=== PATIENT | female | born 1990 | race Two or more races ===

== ENCOUNTER 2023-12-06 22:51 | Emergency (ER) | payer MEDICAID, OTHER ==
[~2023-12-06] VITALS: Ht 167.6 cm; Wt 75.0 kg
[2023-12-06] MEDS: ONDANSETRON HCL 4 MG/2 ML VIAL IV ONE (23:52)
[2023-12-07 00:10] LABS: Basophils # (auto) 0.1 10 ^3/uL (0-0.2); Basophils % (auto) 0.7 % (0.0-2.0); Eosinophils # (auto) 0.2 10 ^3/uL (0-0.8); Eosinophils % (auto) 2.9 % (0.0-7.0); Hematocrit 38.9 % (36.0-46.0); Lymphocytes # (auto) 3.2 10 ^3/uL (0.4-5.4); Lymphocytes % (auto) 39.2 % (10.0-50.0); Mean Corpuscular Hemoglobin 28.8 pg (28.0-32.0); Mean Corpuscular Hgb Conc. 33.3 g/dL (32.0-36.0); Mean Corpuscular Volume 86.3 fL (80.0-100.0); Monocytes # (auto) 0.5 10 ^3/uL (0-1.3); Monocytes % (auto) 6.6 % (0.0-12.0); Neutrophils # (auto) 4.1 10 ^3/uL (1.6-8.6); Neutrophils % (auto) 50.6 % (37.0-80.0); Nucleated Red Blood Cells % 0.1 %; Platelet Count (auto) 412 10^3/uL (140-450); Red Blood Cells 4.51 10^6/uL (4.0-5.20); Red Cell Distribution Width 14.1 % (11.8-14.3); White Blood Cell 8.1 10^3/uL (4.4-10.8)
[2023-12-07 00:11] LABS: Chloride 108 mmol/L (98-107); Potassium 4.1 mmol/L (3.5-5.1); Sodium 138 mmol/L (136-145)
[2023-12-07 00:12] LABS: Anion Gap 4 (5-15); Carbon Dioxide 26 mmol/L (20-31)
[2023-12-07 00:13] LABS: Calcium 9.8 mg/dL (8.7-10.4)
[2023-12-07 00:18] LABS: Blood Urea Nitrogen 8 mg/dL (9-23); Glucose 91 mg/dL (74-106)
[2023-12-07 02:18] VITALS: BP 116/60; PULSE 98; RESP 16; TEMP 97.8; O2SAT 98
[2023-12-07] MEDS: ACETAMINOPHEN 325 MG TAB PO ONE (02:26)
[2023-12-07] MEDS: HYDROcodone-ACET 5/325MG TAB PO ONE (03:38)
== END 2023-12-07 03:45 | disposition home or self-care (01) ==
LOC: EDBD 22:51 → ER 22:51
DX: S16.1XXA Strain of muscle, fascia and tendon at neck level, initial encounter (principal); R10.2 Pelvic and perineal pain; Z88.0 Allergy status to penicillin; X58.XXXA Exposure to other specified factors, initial encounter; Y93.89 Activity, other specified; Y92.89 Other specified places as the place of occurrence of the external cause; Y99.8 Other external cause status
CPT/HCPCS: 36415; 70450; 71250; 72125; 80048; 84702; 85025; 96374; 99285; J2405